=== PATIENT | male | born 1990 ===

== ENCOUNTER 2018-08-22 11:01 | Emergency (ER) | payer SELFPAY ==
[2018-08-22 11:35] VITALS: BP 118/78
--- NOTE | 2018-08-22 11:57 | ED ---
Lower Extremity - HPI Summary HPI Summary: Pt here w/ Lt foot pain, bruising and swelling since injury at work yesterday - accidentally dropped a metal amado on top of foot. Denies numbness, tingling, weakness and has been ambulating - tender with foot strike and push off but otherwise no pain. Moving toes and ankle well. Iced his foot last night. No meds. - History of Current Complaint Chief Complaint: UCLowerExtremity Stated Complaint: L FOOT INJURY Time Seen by Provider: 08/22/18 11:37 Hx Obtained From: Patient Pain Intensity: 4 - Allergies/Home Medications Allergies/Adverse Reactions: Allergies Allergy/AdvReac Type Severity Reaction Status Date / Time No Known Allergies Allergy Verified 08/22/18 11:28 Home Medications: Home Medications NK [No Home Medications Reported] 08/22/18 [History Confirmed 08/22/18] PMH/Surg Hx/FS Hx/Imm Hx Previously Healthy: Yes Endocrine/Hematology History: Denies: Hx Anticoagulant Therapy, Hx Blood Disorders Infectious Disease History: No Infectious Disease History: Denies: Traveled Outside the [place] in Last 30 Days - Social History Occupation: Employed Full-time - works in a [employer] Alcohol Use: None Hx Substance Use: No Substance Use Type: Reports: None Hx Tobacco Use: Yes Smoking Status (MU): Current Some Day Smoker Amount Used/How Often: a couple of cig/ week Review of Systems Positive: no symptoms reported Positive: Arthralgia, Edema. Negative: Decreased ROM Positive: Bruising Neurological: Negative Psychological: Normal All Other Systems Reviewed And Are Negative: Yes Physical Exam Triage Information Reviewed: Yes Vital Signs On Initial Exam: Initial Vitals Temp Pulse Resp BP Pulse Ox 98.8 F 68 16 118/78 100 08/22/18 11:29 08/22/18 11:29 08/22/18 11:29 08/22/18 11:29 08/22/18 11:29 Vital Signs Reviewed: Yes Appearance: Positive: Well-Appearing, No Pain Distress, Thin Skin: Positive: Warm, Skin Color Reflects Adequate Perfusion, Dry - healing ecchymosis over Lt dorsal foot - no skin breakdown Head/Face: Positive: Normal Head/Face Inspection Eyes: Positive: EOMI ENT: Positive: Hearing grossly normal Cardiovascular: Positive: Pulses are Symmetrical in both Upper and Lower Extremities Musculoskeletal: Positive: Strength/ROM Intact, Pain @ - TTP over ecchymosis w/ mild edema of Lt dorsal foot - no gross deformity - other MT's, ankle and toes are NTTP Neurological: Positive: Normal, Sensory/Motor Intact, Alert, Oriented to Person Place, Time, CN Intact II-III Psychiatric: Positive: Normal Diagnostics - Vital Signs Vital Signs Temp Pulse Resp BP Pulse Ox 08/22/18 11:29 98.8 F 68 16 118/78 100 - Laboratory Lab Statement: Any lab studies that have been ordered have been reviewed, and results considered in the medical decision making process. Lower Extremity Course/Dx - Course Course Of Treatment: Xr: No fx, no dislocation - Diagnoses Provider Diagnoses: Contusion of left foot Discharge - Sign-Out/Discharge Documenting (check all that apply): Patient Departure All imaging exams completed and their final reports reviewed: Yes - Discharge Plan Condition: Stable Disposition: HOME Patient Education Materials: Foot Contusion (ED) Forms: *Work Release Referrals: Guilherme Holcomb MD [Medical Doctor] - Additional Instructions: REST, ICE, ELEVATE AND YOU MAY WRAP WITH AN JAMES WRAP FOR COMFORT. Follow-up with occupational medicine if pain persists or worsens - phone number included here today. You may take ibuprofen alternating with acetaminophen as needed for pain. You may also try topical Arnica cream to aid in healing of bruising. These medications may be purchased over the counter. *If you develop numbness, tingling, weakness, swelling or skin discoloration, remove JAMES wrap and elevate leg for 20 minutes. If symptoms persist, go to the ED - Billing Disposition and Condition Condition: STABLE Disposition: Home
--- NOTE | 2018-08-22 12:20 | RAD ---
HISTORY: Dropped heavy metal amado on dorsum of foot COMPARISONS: None VIEWS: 3 , Frontal, lateral, and oblique views of the left foot FINDINGS: BONE DENSITY: Normal. BONES: There is no displaced fracture. JOINTS: There is no arthropathy. ALIGNMENT: There is no dislocation. SOFT TISSUES: Unremarkable. OTHER FINDINGS: None. IMPRESSION: NO ACUTE OSSEOUS INJURY. IF SYMPTOMS PERSIST, RECOMMEND REPEAT IMAGING.
== END 2018-08-22 13:32 | disposition home or self-care (01) ==
LOC: UCEAST 11:01
DX: S90.32XA Contusion of left foot, initial encounter (principal); W20.8XXA Other cause of strike by thrown, projected or falling object, initial encounter; Y92.9 Unspecified place or not applicable; Y99.0 Civilian activity done for income or pay; Z72.0 Tobacco use
CPT/HCPCS: 99202; G0463